=== PATIENT | male | born 1985 | race Caucasian/White ===

== ENCOUNTER 2017-08-26 09:00 | Emergency (ER) | payer SELFPAY ==
[2017-08-26] MEDS ORDERED: Sodium Chloride 0.9% 1,000 ML IV ONE ×2 (09:26→10:47)
[2017-08-26] MEDS ORDERED: Ketorolac 30 MG/ML SDV IVPUSH ONE (09:26)
[2017-08-26] MEDS ORDERED: Ondansetron 4 MG/2 ML SDV IVPUSH ONE (09:26)
[2017-08-26 10:05] LABS: CHLORIDE,CL 108 mmol/L (98-110); SODIUM,NA 138 mmol/L (136-146)
--- NOTE | 2017-08-26 10:31 | EDM.PDOC ---
ED HPI GENERAL MEDICAL PROBLEM - General Chief Complaint: Abdominal Pain Stated Complaint: PT WOULD LIKE TO GET HIS APPENDIX CHECK Time Seen by Provider: 08/26/17 09:10 Source of Information: Reports: Patient History Limitations: Reports: No Limitations - History of Present Illness INITIAL COMMENTS - FREE TEXT/NARRATIVE: HISTORY AND PHYSICAL: History of present illness: [32-year-old male with no prior abdominal history now complaining of 2 day history of diarrhea crampy abdominal pain and vomiting. Patient had intermittent pain 2 days ago it improved slightly and now came back again today. Denies fevers chills sweats or shaking chills. No headache or stiff neck. No chest pain or cough. He has never had any prior abdominal surgeries or chronic abdominal problems or diagnoses. No recent travel, unclean water, or suspicious foods] Review of systems: As per history of present illness and below otherwise all systems reviewed and negative. Past medical history: As per history of present illness and as reviewed below otherwise noncontributory. Surgical history: As per history of present illness and as reviewed below otherwise noncontributory. Social history: No reported history of drug or alcohol abuse. Family history: As per history of present illness and as reviewed below otherwise noncontributory. Physical exam: 32-year-old male well-appearing alert vigorous communicative and appropriate. Supple neck clear lungs regular rhythm no tachycardia no CVA tenderness. Mild mid upper abdominal tenderness without guarding or rebound no mass or megaly normal bowel sounds no skin changes. HEENT: Atraumatic, normocephalic, pupils reactive, negative for conjunctival pallor or scleral icterus, mucous membranes moist, throat clear, neck supple, nontender, trachea midline. Lungs: Clear to auscultation, breath sounds equal bilaterally, chest nontender. Heart: S1S2, regular, negative for clicks, rubs, or JVD. Abdomen: Soft, nondistended. Negative for masses or hepatosplenomegaly. Negative for costovertebral tenderness. Pelvis: Stable nontender. Genitourinary: Deferred. Rectal: Deferred. Extremities: Atraumatic, negative for cords or calf pain. Neurovascular unremarkable. Neuro: Awake, alert, oriented. Cranial nerves grossly unremarkable. Cerebellum unremarkable. Motor and sensory unremarkable throughout. Exam nonfocal. Diagnostics: [CT abdomen and pelvis with by mouth and IV contrast] Therapeutics: [Toradol Zofran and IV fluids administered] Impression: [Abdominal pain Gastroenteritis] Plan: [Signs and symptoms consistent with viral gastroenteritis in an otherwise healthy patient. IV fluids anti-emetic and Toradol administered. Full workup pending including labs and CT. Will follow clinically correlate with results and reevaluate for disposition On reevaluation prior to discharge patient asymptomatic with no active nausea. He has no active abdominal pain and is nontender. Specifically patient has no right upper quadrant tenderness on reevaluation after incidental finding on CT of possibly mildly enlarged extrahepatic common bile duct at 7 mm. This result was discussed with Dr. Kalen Calvo surgery carton machine operator who agrees this appears to be an incidental finding and no further workup or treatment is indicated at this time. Dr. Calvo the patient in my all agree to treat the gastroenteritis symptomatically have the patient remained well-hydrated and after this illness resolves have him follow-up with his DrRip for reevaluation and to determine if an ultrasound of the right upper quadrant gallbladder and bile system is indicated at that time. Patient was given a copy of the CT results for this outpatient follow-up. He is also given a prescription for Zofran and Levsin for use as needed. Patient agrees with outpatient follow-up and will return immediately for new severe or worsening symptoms. He agrees with outpatient follow-up and strict return precautions were given Definitive disposition and diagnosis as appropriate pending reevaluation and review of above. Lower Abdomen Pain Score (Numeric/FACES): 7 - Related Data Allergies Allergy/AdvReac Type Severity Reaction Status Date / Time No Known Allergies Allergy Verified 08/26/17 09:26 Home Meds: Home Meds Bismuth Subsalicylate [Pepto Bismol] PRN 08/26/17 [History] Hyoscyamine Sulfate [Levsin-Sl] 0.125 mg SL TID PRN #15 tab.subl 08/26/17 [Rx] Ondansetron [Zofran ODT] 4 mg SL Q4H PRN #16 tab.dis 08/26/17 [Rx] Past Medical History - Past Health History Medical/Surgical History: Denies Medical/Surgical History Psychiatric History: Reports: None Social & Family History - Family History Family Medical History: Noncontributory - Tobacco Use Smoking Status *Q: Never Smoker - Recreational Drug Use Recreational Drug Use: No ED ROS GENERAL - Review of Systems Review Of Systems: See Below (History of present illness) ED EXAM, GI/ABD - Physical Exam Exam: See Below (History of present illness) Course - Vital Signs Last Recorded V/S: Last Vital Signs Temp 36.2 C 08/26/17 09:23 Pulse 73 08/26/17 11:56 Resp 18 08/26/17 11:56 BP 115/68 08/26/17 11:56 Pulse Ox 100 08/26/17 11:56 - Orders/Labs/Meds Orders: Active Orders 24 hr Category Date Time Status Abdomen Pelvis w Cont [CT] Stat Exams 08/26/17 09:26 Taken Labs: Laboratory Tests 08/26/17 08/26/17 08/26/17 Range/Units 09:29 09:29 09:59 WBC 8.10 (4.0-11.0) K/uL RBC 4.84 (4.50-5.90) M/uL Hgb 15.1 (13.0-17.0) g/dL Hct 42.8 (38.0-50.0) % MCV 88.4 (80.0-98.0) fL MCH 31.2 (27.0-32.0) pg MCHC 35.3 (31.0-37.0) g/dL RDW Std Deviation 42.9 (28.0-62.0) fl RDW Coeff of Bonnie 13 (11.0-15.0) % Plt Count 189 (150-400) K/uL MPV 9.60 (7.40-12.00) fL Neut % (Auto) 77.4 (48.0-80.0) % Lymph % (Auto) 11.0 L (16.0-40.0) % Smith % (Auto) 10.4 (0.0-15.0) % Eos % (Auto) 1.1 (0.0-7.0) % Baso % (Auto) 0.1 (0.0-1.5) % Neut # (Auto) 6.3 H (1.4-5.7) K/uL Lymph # (Auto) 0.9 (0.6-2.4) K/uL Smith # (Auto) 0.8 (0.0-0.8) K/uL Eos # (Auto) 0.1 (0.0-0.7) K/uL Baso # (Auto) 0.0 (0.0-0.1) K/uL Nucleated RBC % 0.0 /100WBC Nucleated RBCs # 0 K/uL Sodium 138 (136-146) mmol/L Potassium 4.5 (3.5-5.1) mmol/L Chloride 108 (98-110) mmol/L Carbon Dioxide 21 (21-31) mmol/L BUN 15 (6.0-23.0) mg/dL Creatinine 1.0 (0.6-1.5) mg/dL Est Cr Clr Drug Dosing TNP Estimated GFR (MDRD) > 60.0 ml/min Glucose 85 (60-110) mg/dL Calcium 9.2 (8.8-10.8) mg/dL Total Bilirubin 0.7 (0.1-1.5) mg/dL AST 22 (5-40) IU/L ALT 18 (8-54) IU/L Alkaline Phosphatase 87 (40-150) Total Protein 7.6 (6.0-8.0) g/dL Albumin 4.4 (3.5-5.0) g/dL Globulin 3.2 (2.0-3.5) g/dL Albumin/Globulin Ratio 1.4 (1.3-2.8) Lipase 20 (7-80) U/L Urine Color YELLOW Urine Appearance CLEAR Urine pH 5.5 (5.0-8.0) Ur Specific [place] >= 1.030 (1.001-1.035) Urine Protein NEGATIVE (NEGATIVE) mg/dL Urine Glucose (UA) NEGATIVE (NEGATIVE) mg/dL Urine Ketones NEGATIVE (NEGATIVE) mg/dL Urine Occult Blood NEGATIVE (NEGATIVE) Urine Nitrite NEGATIVE (NEGATIVE) Urine Bilirubin NEGATIVE (NEGATIVE) Urine Urobilinogen 0.2 (<2.0) EU/dL Ur Leukocyte Esterase NEGATIVE (NEGATIVE) Urine RBC 0-2 (0-2/HPF) Urine WBC 1-4 (0-5/HPF) Ur Epithelial Cells RARE (NONE-FEW) Urine Bacteria FEW (NEGATIVE) Urine Mucus MODERATE (NONE-MOD) Meds: Medications Discontinued Medications Generic Name Dose Route Start Last Admin Trade Name Freq PRN Reason Stop Dose Admin Sodium Chloride 1,000 mls @ 999 mls/hr 08/26/17 09:26 08/26/17 09:38 Normal Saline IV 08/26/17 10:26 999 mls/hr STAT ONE Administration Sodium Chloride 1,000 mls @ 999 mls/hr 08/26/17 10:47 08/26/17 11:07 Normal Saline IV 08/26/17 11:47 999 mls/hr STAT ONE Administration Iopamidol 100 ml 08/26/17 11:41 08/26/17 11:44 Isovue Multipack-370 (76%) IVPUSH 08/26/17 11:42 100 ml ONETIME STA Administration Ketorolac Tromethamine 30 mg 08/26/17 09:26 08/26/17 09:37 Toradol IVPUSH 08/26/17 09:27 30 mg ONETIME ONE Administration Ondansetron HCl 4 mg 08/26/17 09:26 08/26/17 09:37 Zofran IVPUSH 08/26/17 09:27 4 mg ONETIME ONE Administration Departure - Departure Time of Disposition: 13:41 Disposition: Home, Self-Care 01 Condition: Good Clinical Impression: Viral gastroenteritis, Vomiting and diarrhea, Abdominal pain, Common bile duct dilation - Discharge Information Instructions: Viral Gastroenteritis, Adult, [id number], Nausea and Vomiting, Adult, [id number], Abdominal Pain, Adult, [id number] Referrals: PCP,None [Primary Care Provider] - Forms: ED Department Discharge Additional Instructions: Your findings and symptoms are consistent with viral gastroenteritis. This is a viral infection which causes vomiting and diarrhea and typically crampy abdominal pain identical to your symptoms. Sometimes fevers are associated. Your laboratory workup was normal today including your urinalysis results. Rest and drink plenty of fluids. Takes Zofran under your tongue every 4 hours as needed for nausea and vomiting and Levsin under your tongue 3 times a day as needed for crampy abdominal pain. Follow-up with your doctor in one to 2 days. Return immediately for new severe or worsening symptoms The CAT scan of your abdomen showed an incidental finding of a mildly enlarged extrahepatic common bile duct at 7 mm. You've been given a copy of this CAT scan result to follow-up with your Dr. after the vomiting and diarrhea resolved to discuss whether further workup including an ultrasound of your right upper abdomen and gallbladder would be necessary. - My Orders Last 24 Hours: My Active Orders 08/26/17 09:26 Abdomen Pelvis w Cont [CT] Stat - Assessment/Plan Last 24 Hours: My Active Orders 08/26/17 09:26 Abdomen Pelvis w Cont [CT] Stat
[2017-08-26] MEDS ORDERED: Iopamidol 755 MG/ML 500 ML Multipack Bottle IVPUSH STA (11:41)
[2017-08-26 11:56] VITALS: BP 115/68
--- NOTE | 2017-08-26 14:24 | CT ---
EXAM DATE: 08/26/17 PATIENT'S AGE: 32 Patient: ROMAIN ARSHAD Facility: [place], [place] Site . Site : [id number] Study: CT Abdomen/Pelvis [id number]/28/2017 11:52:59 AM Ordering Physician: Tod Rai Final Report: HISTORY: Right upper quadrant pain x days. TECHNIQUE: The abdomen and pelvis was scanned using technique 3 mm intervals after the IV and oral contrast. Sagittal and coronal reconstructions were performed. FINDINGS: Lung bases: Minimal dependent atelectasis posteriorly. Liver and gallbladder: The liver parenchyma is homogeneous. There is trace periportal edema. This is a nonspecific finding. No calcified gallstones or gallbladder wall thickening. There is mild intrahepatic biliary dilatation. The extrahepatic common bile duct measures up to 7 mm. No calcified choledocholithiasis. Spleen, pancreas and adrenal glands: Spleen is normal in size. Pancreatic duct is not dilated. The pancreatic parenchyma is homogeneous. The adrenal glands are normal. Kidneys and bladder: Symmetric nephrograms. No hydronephrosis. Bladder is decompressed. Retroperitoneum and lymph nodes: The abdominal aorta is normal in caliber. No pathologic periaortic lymphadenopathy is seen. Multiple small mesenteric lymph nodes are present. GI tract: Stomach is decompressed. No dilated small bowel loops are seen. The appendix is normal seen on coronal images 94-114 adjacent to the right iliac vein. Oral contrast reaches the sigmoid colon. There is no free air in the abdomen. There is no free fluid in the pelvis. Pelvic organs: Prostate is normal. Osseous structures: Bony structures are normal for age. IMPRESSION: 1. No calcified gallstones are seen The extrahepatic common bile duct is generous in size at 7 mm. There is trace intrahepatic duct dilatation. Consider ultrasound to evaluate for non-calcified gallstones. 2. Mild periportal edema, a nonspecific findings. 3. No hydronephrosis or ureteral obstruction. 4. Normal appendix deep within the pelvis. Dictated by Meredith Mendes MD @ 08/26/2017 12:43:49 PM Dictated by: Meredith Mendes MD @ 08/26/2017 12:45:25 (Electronic Signature) Report Signed by Proxy. CAB[facility]IN[facility] MEDICAL CENTERFatou
== END 2017-08-26 14:06 | disposition home or self-care (01) ==
LOC: MW.ED 09:00
DX: A08.4 Viral intestinal infection, unspecified (principal); K83.8 Other specified diseases of biliary tract
CPT/HCPCS: 36415; 74177; 80053; 81001; 83690; 85025; 96361; 96374; 96375; 99284; J1885; J2405; J7040; Q9967; 99283